=== PATIENT | male | born 1980 | race Caucasian/White ===

== ENCOUNTER 2020-08-16 13:52 | Emergency (ER) | payer OTHER, SELFPAY ==
[2020-08-16 14:07] VITALS: BP 178/81; PULSE 88; RESP 16; TEMP 37.2; O2SAT 97; BMI 65.9
--- NOTE | 2020-08-16 14:12 | DI.RAD.S_ITS ---
PROCEDURE: XR HUMERUS RT 2V INDICATIONS: cabinet fell on pts arm TECHNIQUE: 3 views of the humerus were acquired. COMPARISON: None. FINDINGS: Bones: No fractures or dislocations. No suspicious bony lesions. Soft tissues: No suspicious soft tissue calcifications. IMPRESSION: No trauma found. Dictated by: Simba Barney M.D. on 08/16/2020 at 15:05 Approved by: Simba Barney M.D. on 08/16/2020 at 15:05
[2020-08-16 15:33] VITALS: BP 168/82; PULSE 82; O2SAT 95
--- NOTE | 2020-08-16 15:41 | ED.UPPEXIN ---
HPI - Extremity Injury (Upper) <BETH Valerio - Last Filed: 08/16/20 15:52> General Chief Complaint: Extremity Injury, Upper Stated Complaint: possible broken arm Time Seen by Provider: 08/16/20 14:41 Source: patient Mode of arrival: Ambulatory Limitations: no limitations History of Present Illness HPI narrative: 40yo male presents to the emergency department for right arm pain. He states he had a cabinet fall in his right arm. He states he has pain with raising his arm is straightening his elbow. He denies any prior injury to this area. Patient denies any other injury, no head injury, chest pain, fevers, chills, nausea, vomiting, dizziness, or any other concerns. Related Data Allergies Allergy/AdvReac Type Severity Reaction Status Date / Time Penicillins Allergy Verified 08/16/20 14:07 Review of Systems <BETH Valerio - Last Filed: 08/16/20 15:52> Review of Systems Narrative: REVIEW OF SYSTEMS: GENERAL: Denies fever or chills. HENT: No head trauma. CARDIOVASCULAR: No chest pain. RESPIRATORY: No shortness of breath or cough. GASTROINTESTINAL: No nausea or vomiting. MUSCULOSKELETAL: Complains of R arm pain, see HPI. INTEGUMENTARY: No rash. Patient History <BETH Valerio - Last Filed: 08/16/20 15:52> Medical History (Updated 08/16/20 @ 15:49 by BETH Valerio) No significant medical problems Social History Smoking Status: Unknown if ever smoked Smoking Status: Unknown if ever smoked alcohol intake frequency: holidays/special occasions only Substance Use Type: does not use Exam <BETH Valerio - Last Filed: 08/16/20 15:52> Initial Vital Signs Initial Vital Signs: Vital Signs Temperature 99.0 F 08/16/20 14:07 Pulse Rate 88 08/16/20 14:07 Respiratory Rate 16 08/16/20 14:07 Blood Pressure 178/81 H 08/16/20 14:07 Pulse Oximetry 97 08/16/20 14:07 PHYSICAL EXAMINATION: GENERAL: Awake and alert. HENT: Normocephalic, atraumatic. EYES: Symmetrical, sclera white, no periorbital swelling. RESPIRATORY: Normal respiratory rate, trachea midline, airway patent. No stridor, nasal flaring or accessory muscle use. MUSCULOSKELETAL: Tenderness to right biceps, small amount ecchymosis noted. Decreased arm extension due to pain. Normal gait and coordination. Equal tone and mass bilaterally. EXTREMITIES: CMS intact. SKIN: Warm, dry, soft, appropriate color for ethnicity. No lesions, rashes, or wounds. NEURO: Alert and Oriented X 3. No sensory deficits. PSYCH: Appropriate affect and mood. <Denita Parker DO - Last Filed: 08/17/20 08:05> Initial Vital Signs Initial Vital Signs: Vital Signs Temperature 99.0 F 08/16/20 14:07 Pulse Rate 88 08/16/20 14:07 Respiratory Rate 16 08/16/20 14:07 Blood Pressure 178/81 H 08/16/20 14:07 Pulse Oximetry 97 08/16/20 14:07 Course <BETH Valerio - Last Filed: 08/16/20 15:52> Orders Ordered: ED Orders 08/16/20 14:12 XR humerus RT 2V Stat Vital Signs Vital signs: Vital Signs - 8 hr 08/16/20 14:07 08/16/20 15:33 Temperature 99.0 F Pulse Rate 88 82 Respiratory Rate 16 Blood Pressure 178/81 H 168/82 H Pulse Oximetry 97 95 <Denita Parker DO - Last Filed: 08/17/20 08:05> Orders Ordered: ED Orders 08/16/20 14:12 XR humerus RT 2V Stat Vital Signs Vital signs: Vital Signs - 8 hr 08/16/20 14:07 08/16/20 15:33 Temperature 99.0 F Pulse Rate 88 82 Respiratory Rate 16 Blood Pressure 178/81 H 168/82 H Pulse Oximetry 97 95 MDM - Extremity Injury (Upper) <BETH Valerio - Last Filed: 08/16/20 15:52> Medical Records Attestation: I reviewed the patient's medical records. Lab Data Attestation: I reviewed the patient's lab results. Imaging Data Extremity x-ray #1: Radiologist's Impression: [address] [id number] ReportSigned Patient: Mikael Quintero#: [id number]: 1980Acct:[id number]/Sex: 40 / MDate of Service: 08/16/20Loc: EDAccession Number: [id number] Procedure: XR humerus RT 2V Ordering Provider: Denita Parker D.O. PROCEDURE: XR HUMERUS RT 2V INDICATIONS: cabinet fell on pts arm TECHNIQUE: 3 views of the humerus were acquired. COMPARISON: None. FINDINGS: Bones: No fractures or dislocations. No suspicious bony lesions. Soft tissues: No suspicious soft tissue calcifications. IMPRESSION: No trauma found. Dictated by: Simba Barney M.D. on 08/16/2020 at 15:05 Approved by: Simba Barney M.D. on 08/16/2020 at 15:05 [facility] Narrative Medical decision making narrative: History and examination concerning for a contusion. Less likely fracture given negative x-ray. Soft tinged to injury is most likely causing swelling and irritation to the muscle which increases with joint movement. Patient requested a note for work for 1 week. This was given per request. Return precautions given for new or worsening symptoms. He agreed to plan of care verbalized understanding. Discharge Plan Departure Patient Disposition: Home Clinical Impression: Contusion of arm Qualifiers: Encounter type: initial encounter Laterality: right Qualified Code(s): S40.021A - Contusion of right upper arm, initial encounter Instructions: DI for Arm Pain Activity Restrictions/Additional Instructions: Thank you for entrusting me with your care today. As discussed, your x-rays negative for any fractures. You can wear the sling for the next 24 hours, after that I suggest moving her elbow and wrist to help with mobility and muscle use. Follow-up with your primary care provider in 1-2 weeks for further evaluation. Return emergency department for any new or worsening symptoms. Stand Alone Forms: Work Release Note <Denita Parker DO - Last Filed: 08/17/20 08:05> Cosign ED Attending [place] Attestation: I was immediately available in the department for consultation. Documentation has been reviewed. I agree with assessment and plan.
== END 2020-08-16 15:33 | disposition home or self-care (01) ==
PROVIDERS: Emergency Provider Nurse Practitioner
DX: S40.021A Contusion of right upper arm, initial encounter (principal); W22.8XXA Striking against or struck by other objects, initial encounter; Y99.0 Civilian activity done for income or pay
CPT/HCPCS: 73060; 99283